=== PATIENT | male | born 1940 | race Caucasian/White ===

== ENCOUNTER 2018-02-22 06:32 | Emergency (ER) | payer MEDICARE ==
[~2018-02-22] VITALS: Ht 172.7 cm; Wt 95.5 kg
[2018-02-22] MEDS ORDERED: OXYcodone/APAP 5/325MG TABLET ONE (07:23)
[2018-02-22] MEDS ORDERED: OXYcodone/APAP 5/325MG TABLET PO ONE (07:30)
[2018-02-22 08:07] VITALS: BP 117/69
== END 2018-02-22 08:41 | disposition home or self-care (01) ==
LOC: ED 07:45
DX: S93.622A Sprain of tarsometatarsal ligament of left foot, initial encounter (principal); X58.XXXA Exposure to other specified factors, initial encounter; Y93.89 Activity, other specified; Y92.89 Other specified places as the place of occurrence of the external cause; Y99.8 Other external cause status
CPT/HCPCS: 99284

== ENCOUNTER 2018-04-03 17:28 | Emergency (ER) | payer MEDICARE ==
[~2018-04-03] VITALS: Ht 172.7 cm; Wt 93.5 kg
[2018-04-03 17:30] VITALS: BP 137/86
== END 2018-04-03 18:37 | disposition home or self-care (01) ==
LOC: ED 18:05
DX: S93.611A Sprain of tarsal ligament of right foot, initial encounter (principal); X50.1XXA Overexertion from prolonged static or awkward postures, initial encounter; Y93.89 Activity, other specified; Y99.8 Other external cause status; Y92.009 Unspecified place in unspecified non-institutional (private) residence as the place of occurrence of the external cause
CPT/HCPCS: 99284

== ENCOUNTER 2018-08-15 12:38 | Emergency (ER) | payer MEDICARE ==
[~2018-08-15] VITALS: Ht 175.3 cm; Wt 91.0 kg
[2018-08-15] MEDS ORDERED: SODIUM CHLORIDE FLUSH 10ML SYR IVF ONE (14:00)
[2018-08-15] MEDS ORDERED: SODIUM CHLORIDE 0.9% 1,000ML IVBOLUS ONE (14:00)
[2018-08-15] MEDS ORDERED: ONDANSETRON 2MG/ML, 2ML IVPush ONE (14:00)
[2018-08-15 14:05] LABS: BASOPHILS # (AUTO) 0.01 x10^3/uL (0-0.1); BASOPHILS % (AUTO) 0 % (0-1); EOSINOPHILS # (AUTO) 0.02 x10^3/uL (0-0.4); EOSINOPHILS % (AUTO) 0 % (1-7); LYMPHOCYTES % (AUTO) 14 % (22-44); MD NO; MEAN CORPUSCULAR HEMOGLOBIN 30.6 pg (27.5-34.5); MEAN CORPUSCULAR HGB CONC 33.7 g/dL (33.2-36.2); MEAN CORPUSCULAR VOLUME 90.6 fL (81-97); MEAN PLATELET VOLUME 9.5 fL (7.4-10.4); MONOCYTES % (AUTO) 10 % (2-9); NEUTROPHILS # (AUTO) 7.43 x10^3/uL (1.8-6.8); NEUTROPHILS % (AUTO) 75 % (42-75); PLATELET COUNT 254 x10^3/uL (130-400); RED BLOOD COUNT 6.27 x10^6/uL (4.38-5.82); RED CELL DISTRIBUTION WIDTH 14.2 % (9.4-14.8)
[2018-08-15] MEDS ORDERED: ONDANSETRON 2MG/ML, 2ML ONE (14:07)
[2018-08-15 14:30] VITALS: BP 145/100
[2018-08-15 14:53] LABS: CHLORIDE 105 mmol/L (98-107)
[2018-08-15 14:59] LABS: ALBUMIN 3.9 g/dL (3.4-5.0); ANION GAP 12 mmol/L (5-15); CALCIUM 10.2 mg/dL (8.5-10.1)
[2018-08-15 15:03] LABS: ALANINE AMINOTRANSFERASE 33 U/L (12-78); ALKALINE PHOSPHATASE 93 U/L (45-117); BILIRUBIN,TOTAL 1.2 mg/dL (0.2-1.0); CREATININE 1.23 mg/dL (0.7-1.3); TOTAL PROTEIN 8.8 g/dL (6.4-8.2)
== END 2018-08-15 16:41 | disposition home or self-care (01) ==
LOC: ED 16:40
DX: K52.9 Noninfective gastroenteritis and colitis, unspecified (principal); E86.0 Dehydration; D75.1 Secondary polycythemia
CPT/HCPCS: 36415; 80053; 83605; 85025; 96361; 96374; 99284; J2405; J7030

== ENCOUNTER 2018-10-14 02:17 | Emergency (ER) | payer MEDICARE ==
[~2018-10-14] VITALS: Ht 175.3 cm; Wt 79.0 kg
[2018-10-14 02:52] LABS: BASOPHILS # (AUTO) 0.02 x10^3/uL (0-0.1); BASOPHILS % (AUTO) 0 % (0-1); EOSINOPHILS % (AUTO) 1 % (1-7); LYMPHOCYTES # (AUTO) 1.07 x10^3/uL (1-3.4); LYMPHOCYTES % (AUTO) 13 % (22-44); MD NO; MEAN CORPUSCULAR HEMOGLOBIN 30.5 pg (27.5-34.5); MEAN CORPUSCULAR HGB CONC 33.5 g/dL (33.2-36.2); MEAN CORPUSCULAR VOLUME 91.1 fL (81-97); MEAN PLATELET VOLUME 9.1 fL (7.4-10.4); MONOCYTES # (AUTO) 0.89 x10^3/uL (0.2-0.8); MONOCYTES % (AUTO) 11 % (2-9); NEUTROPHILS # (AUTO) 6.06 x10^3/uL (1.8-6.8); NEUTROPHILS % (AUTO) 75 % (42-75); PLATELET COUNT 272 x10^3/uL (130-400); RED BLOOD COUNT 5.22 x10^6/uL (4.38-5.82); RED CELL DISTRIBUTION WIDTH 14.1 % (9.4-14.8)
[2018-10-14 03:03] LABS: ALANINE AMINOTRANSFERASE 21 U/L (12-78); ALBUMIN 3.7 g/dL (3.4-5.0); ANION GAP 9 mmol/L (5-15); CALCIUM 9.5 mg/dL (8.5-10.1); CHLORIDE 107 mmol/L (98-107); CREATININE 1.27 mg/dL (0.7-1.3)
[2018-10-14 03:05] LABS: MICROSCOPIC AUTO
[2018-10-14 03:05] LABS: ALKALINE PHOSPHATASE 72 U/L (45-117); BILIRUBIN,TOTAL 0.6 mg/dL (0.2-1.0); TOTAL PROTEIN 7.9 g/dL (6.4-8.2)
[2018-10-14 03:07] LABS: CULTURE INDICATED? NO
--- NOTE | 2018-10-14 03:17 | NUR ---
PT RESTING IN BED IN HOSPITAL GOWN. PT ABLE TO PROVIDE A URINE AND STOOL SAMPLE. BOTH SENT TO LAB. LABS HAVE BEEN DRAWN. PT ON VITALS MONITORS.
[2018-10-14 04:06] LABS: CLOSTRIDIUM DIFFICILE ANTIGEN NEGATIVE; CLOSTRIDIUM DIFFICILE TOXIN NEGATIVE (Negative)
[2018-10-14 04:35] VITALS: BP 112/60
== END 2018-10-14 04:42 | disposition home or self-care (01) ==
LOC: ED 03:19
DX: R19.7 Diarrhea, unspecified (principal); I10 Essential (primary) hypertension; E11.9 Type 2 diabetes mellitus without complications; Z86.73 Personal history of transient ischemic attack (TIA), and cerebral infarction without residual deficits; Z87.891 Personal history of nicotine dependence; Z90.89 Acquired absence of other organs
CPT/HCPCS: 36415; 80053; 81001; 85025; 87324; 89055; 99283

== ENCOUNTER 2018-10-16 01:01 | Observation (INO) | payer MEDICARE ==
[~2018-10-16] VITALS: Ht 175.3 cm; Wt 89.5 kg
--- NOTE | 2018-10-16 01:19 | NUR ---
BIB [facility] FROM HOME FOR C/O CP X ABOUT 6 HOURS. PT. REPORTS "IT STARTED A DULL PAIN IN MY RIGHT ARM ABOUT 5PM THEN MOVED INTO THE CENTER OF MY CHEST". PT. REPORTS PAIN 6/10 AT IT'S WORST AND IS CURRENTLY 3/10. PT. DESCRIBES PAIN DULL AND C/O LIGHT-HEADEDNESS ALSO. IV ESTABLISHED EN ROUTE AND ABOUT 100ML OF NS AFTER B/P DROPPED AFTER 2 NITRO EN ROUTE. PT. TOOK 4 [facility]Y [facility]SA PRIOR TO [facility] ARRIVAL. EKG COMPLETED AND PRESENTED TO ERMD. ERICA NP IN TO EVAL PT. AND DISCUSS POC. PT. PLACED ON CONTINUOUS PULSE OX AND B/P MONIOTRS. PT. WAS ABLE TO TRANSFER SELF FROM [facility] TO [facility] WITHOUT DIFFICULTY. PT. SPEAKING IN FULL SENTENCES/TELLING JOKES TO THIS RN. PT. DENIES NEEDS. CALL LIGHT IN REACH. ALL SAFETY MEASUERS OBSERVED.
[2018-10-16 01:29] LABS: BASOPHILS # (AUTO) 0.02 x10^3/uL (0-0.1); BASOPHILS % (AUTO) 0 % (0-1); EOSINOPHILS # (AUTO) 0.13 x10^3/uL (0-0.4); EOSINOPHILS % (AUTO) 2 % (1-7); LYMPHOCYTES # (AUTO) 1.24 x10^3/uL (1-3.4); LYMPHOCYTES % (AUTO) 15 % (22-44); MD NO; MEAN CORPUSCULAR HEMOGLOBIN 30.9 pg (27.5-34.5); MEAN CORPUSCULAR HGB CONC 33.8 g/dL (33.2-36.2); MEAN CORPUSCULAR VOLUME 91.3 fL (81-97); MEAN PLATELET VOLUME 8.9 fL (7.4-10.4); MONOCYTES # (AUTO) 0.94 x10^3/uL (0.2-0.8); MONOCYTES % (AUTO) 12 % (2-9); NEUTROPHILS # (AUTO) 5.74 x10^3/uL (1.8-6.8); NEUTROPHILS % (AUTO) 71 % (42-75); PLATELET COUNT 273 x10^3/uL (130-400); RED BLOOD COUNT 5.01 x10^6/uL (4.38-5.82); RED CELL DISTRIBUTION WIDTH 14.2 % (9.4-14.8)
[2018-10-16 01:42] LABS: ALANINE AMINOTRANSFERASE 22 U/L (12-78); ALBUMIN 3.1 g/dL (3.4-5.0); ANION GAP 9 mmol/L (5-15); CALCIUM 8.6 mg/dL (8.5-10.1); CHLORIDE 107 mmol/L (98-107)
[2018-10-16 01:47] LABS: ALKALINE PHOSPHATASE 69 U/L (45-117); BILIRUBIN,TOTAL 0.2 mg/dL (0.2-1.0); CREATININE 1.12 mg/dL (0.7-1.3); TOTAL PROTEIN 7.2 g/dL (6.4-8.2); TROPONIN I < 0.015 ng/mL (0.000-0.045)
--- NOTE | 2018-10-16 01:58 | NUR ---
PT. RESTING ON GURNEY WITH NADN, WATCHING TV. PT. DENIES NEEDS. CALL LIGHT IN REACH. ALL SAFETY MEASUES OBSERVED. PT. CHART UP FOR RECHECK BY TRISTAN.
--- NOTE | 2018-10-16 02:58 | NUR ---
[facility] AT BS TO EVAL PT. FOR ADMISSION. THEY ARE AWARE OF INABILITY TO COMPLETE MED REC PT. DOESN'T KNOW HIS MEDS OFF HAND AND DOESN'T HAVE A LIST OF THEM. HE USES THE [facility] ON [address] FOR PHARMACY; UNABLE TO CALL FOR MEDS THEY ARE CLOSED AT THIS TIME. PT. WITH NO DISTRESS NOTED. VS UPDATED. DENIES NEEDS AT THIS TIME. AWAITING BED UPSTAIRS.
--- NOTE | 2018-10-16 03:16 | NUR ---
REPORT TO GIOVANNY CRENSHAW. FLOOR READY FOR PT. TRANSPORT.
--- NOTE | 2018-10-16 03:18 | NUR ---
REPORTED TO GIOVANNY CRENSHAW THAT DAY SHIFT WILL NEED TO F/U WITH MED REC.
[2018-10-16] MEDS ORDERED: LABETALOL 5MG/ML, 20ML IVPush PRN (03:30)
[2018-10-16] MEDS ORDERED: ENOXAPARIN 40 MG/0.4 ML SQ SCH (03:30)
[2018-10-16] MEDS ORDERED: NITROGLYCERIN 0.4 MG/SPRAY SL PRN (03:30)
[2018-10-16] MEDS ORDERED: ONDANSETRON ODT 4 MG PO PRN (03:30)
[2018-10-16] MEDS ORDERED: NITROGLYCERIN 0.4 MG BOTTLE (25 TABS) SL PRN ×2 (03:30)
[2018-10-16] MEDS ORDERED: IBUPROFEN 600 MG TABLET PO PRN (03:30)
[2018-10-16] MEDS ORDERED: ONDANSETRON 2MG/ML, 2ML IVPush PRN (03:30)
[2018-10-16] MEDS ORDERED: ACETAMINOPHEN 325 MG TABLET PO PRN (03:30)
[2018-10-16] MEDS ORDERED: GLUCAGON 1 MG IM PRN (03:30)
[2018-10-16] MEDS ORDERED: morphine SULFATE 10 MG/ML, 1ML IVPush PRN (03:30)
[2018-10-16] MEDS ORDERED: DEXTROSE 4 GM TAB.CHEW PO PRN (03:30)
[2018-10-16] MEDS ORDERED: ENALAPRILAT 1.25 MG/ML, 2ML IVPush PRN (03:30)
[2018-10-16] MEDS ORDERED: DEXTROSE 50%, 50ML SYRINGE IVPush PRN (03:30)
[2018-10-16 03:47] LABS: HEMOGLOBIN A1C 6.5 % (4.2-6.3)
[2018-10-16] MEDS: INSULIN LISPRO 100 UNITS/ML, PEN SQ-INSULIN SCH ×4 (04:05→16:00)
[2018-10-16 04:07] VITALS: BP 112/72
[2018-10-16] MEDS: POTASSIUM CHLORIDE 20 MEQ in LACTATED RINGERS 1,000 ML IV SCH ×2 (04:22→16:36)
[2018-10-16] MEDS ORDERED: ASPIRIN 325 MG TABLET EC PO SCH (06:00)
[2018-10-16] MEDS ORDERED: POTASSIUM CHLORIDE 20 MEQ TAB.ER.PRT PO ONE (07:30)
[2018-10-16 07:59] LABS: TROPONIN I < 0.015 ng/mL (0.000-0.045)
[2018-10-16] MEDS ORDERED: REGADENOSON 0.4 MG/5 ML SYRINGE ONE (08:39)
[2018-10-16] MEDS ORDERED: SODIUM CHLORIDE FLUSH 10ML SYR IVF SCH (09:00)
[2018-10-16] MEDS ORDERED: SENNA/DOCUSATE TABLET PO SCH (09:00)
[2018-10-16 09:12] VITALS: BP 114/73
[2018-10-16 14:49] VITALS: BP 118/76
== END 2018-10-16 17:45 | disposition home or self-care (01) ==
LOC: ED 02:22 → EDIP 02:25 → INTOOBSV 02:25 → 4EST 03:36
PROVIDERS: ADMIT Family Medicine; ATTEND Family Medicine
DX: R07.89 Other chest pain (principal); M79.601 Pain in right arm; I10 Essential (primary) hypertension; E11.40 Type 2 diabetes mellitus with diabetic neuropathy, unspecified; E78.5 Hyperlipidemia, unspecified; E87.6 Hypokalemia; Z86.73 Personal history of transient ischemic attack (TIA), and cerebral infarction without residual deficits; Z87.891 Personal history of nicotine dependence
CPT/HCPCS: 36415; 71045; 73060; 78452; 80053; 82962; 83036; 84484; 85025; 93005; 93017; 96365; 96366; 96372; 99284; A9502; C9898; G0378; J1650; J2785; J3480; J7120

== ENCOUNTER 2019-01-15 23:46 | Emergency (ER) | payer MEDICARE ==
[~2019-01-15] VITALS: Ht 172.7 cm; Wt 90.0 kg
[2019-01-15 23:54] VITALS: BP 127/81
--- NOTE | 2019-01-16 00:05 | NUR ---
PA AT BEDSIDE. UPDATED ON PLAN OF CARE. VSS.
--- NOTE | 2019-01-16 00:11 | NUR ---
Report to Francesca BALTAZAR and Mayuri BALTAZAR
[2019-01-16] MEDS ORDERED: KETOROLAC 30 MG/1 ML ONE (01:17)
--- NOTE | 2019-01-16 01:20 | NUR ---
PT MEDICATED WITH TORADOL 30MG IM FOR PAIN PER EMAR
[2019-01-16] MEDS ORDERED: KETOROLAC 30 MG/1 ML IM ONE (01:30)
--- NOTE | 2019-01-16 01:49 | NUR ---
Patient/Caregiver given discharge instructions and they have confirmed that they understand the instructions. Patient ambulatory with steady gait.
== END 2019-01-16 01:51 | disposition home or self-care (01) ==
LOC: ED 01-16 01:13
DX: S63.502A Unspecified sprain of left wrist, initial encounter (principal); E11.9 Type 2 diabetes mellitus without complications; I10 Essential (primary) hypertension; M10.9 Gout, unspecified; Z86.73 Personal history of transient ischemic attack (TIA), and cerebral infarction without residual deficits; Z90.89 Acquired absence of other organs; X58.XXXA Exposure to other specified factors, initial encounter; Y93.89 Activity, other specified; Y92.89 Other specified places as the place of occurrence of the external cause; Y99.8 Other external cause status
CPT/HCPCS: 73110; 73130; 96372; 99283; J1885

== ENCOUNTER 2019-02-01 20:41 | Emergency (ER) | payer MEDICARE ==
[~2019-02-01] VITALS: Ht 172.7 cm; Wt 95.0 kg
[2019-02-01 21:00] VITALS: BP 102/55
--- NOTE | 2019-02-01 21:35 | NUR ---
SPLINT APPLIED TO LEFT WRIST. CMS INTACT POST APPLICATION
== END 2019-02-01 21:59 | disposition home or self-care (01) ==
LOC: ED 21:45
DX: M25.532 Pain in left wrist (principal); I10 Essential (primary) hypertension; E11.9 Type 2 diabetes mellitus without complications; Z86.73 Personal history of transient ischemic attack (TIA), and cerebral infarction without residual deficits
CPT/HCPCS: 29125; 99283

== ENCOUNTER 2020-03-31 01:29 | Observation (INO) | payer MEDICARE ==
[~2020-03-31] VITALS: Ht 172.7 cm; Wt 94.8 kg
[~2020-03-31 01:29] MED LIST: ASPI-515 PO; ESCI5TAB PO; GABA800T5 PO; LISI1TAB20 PO; METF500T17 PO; SIMV20TA19 PO
--- NOTE | 2020-03-31 01:47 | NUR ---
Patient BIB [facility] c/o RLQ abd pain radiating to back x3-4 days. Pain increases with exertion. Denies N/V, urinary symptoms, or blood in stool. Patient has no appendix. Patient is in NAD. REspirations even and unlabored.
[2020-03-31] MEDS ORDERED: ONDANSETRON 2MG/ML, 2ML ONE (01:51)
[2020-03-31] MEDS ORDERED: MORPHINE SULFATE 4 MG/ML, 1ML ONE (01:52)
[2020-03-31] MEDS ORDERED: MORPHINE SULFATE 4 MG/ML, 1ML IVPush PRN (02:00)
[2020-03-31] MEDS ORDERED: ONDANSETRON 2MG/ML, 2ML IVPush ONE (02:00)
[2020-03-31 02:23] LABS: BASOPHILS # (AUTO) 0.01 x10^3/uL (0-0.1); BASOPHILS % (AUTO) 0 % (0-1); EOSINOPHILS % (AUTO) 1 % (1-7); LYMPHOCYTES # (AUTO) 0.99 x10^3/uL (1-3.4); LYMPHOCYTES % (AUTO) 10 % (22-44); MD NO; MEAN CORPUSCULAR HEMOGLOBIN 29.7 pg (27.5-34.5); MEAN CORPUSCULAR HGB CONC 32.4 g/dL (33.2-36.2); MEAN CORPUSCULAR VOLUME 91.7 fL (81-97); MEAN PLATELET VOLUME 8.8 fL (7.4-10.4); MONOCYTES % (AUTO) 9 % (2-9); NEUTROPHILS # (AUTO) 7.89 x10^3/uL (1.8-6.8); NEUTROPHILS % (AUTO) 80 % (42-75); PLATELET COUNT 255 x10^3/uL (130-400); RED BLOOD COUNT 6.05 x10^6/uL (4.38-5.82); RED CELL DISTRIBUTION WIDTH 14.1 % (9.4-14.8)
[2020-03-31 02:35] LABS: ALANINE AMINOTRANSFERASE 25 U/L (12-78); ALBUMIN 3.4 g/dL (3.4-5.0); ANION GAP 6 mmol/L (5-15); CALCIUM 9.5 mg/dL (8.5-10.1); CHLORIDE 102 mmol/L (98-107); CREATININE 1.57 mg/dL (0.7-1.3)
[2020-03-31 02:37] LABS: ALKALINE PHOSPHATASE 91 U/L (45-117); TOTAL PROTEIN 8.9 g/dL (6.4-8.2)
[2020-03-31] MEDS ORDERED: SODIUM CHLORIDE 0.9% 1,000ML IVBOLUS ONE (04:00)
--- NOTE | 2020-03-31 04:40 | NUR ---
PATIENT REPORTS PAIN IMPROVED AFTER PAIN MEDICATION, VSS, NAD. WILL CONTINUE TO MONITOR
[2020-03-31] MEDS ORDERED: ONDANSETRON 2MG/ML, 2ML IVPush PRN (05:00)
[2020-03-31] MEDS ORDERED: HYDROcodone/APAP 5/325 TABLET PO PRN (05:00)
[2020-03-31] MEDS ORDERED: ACETAMINOPHEN 325 MG TABLET PO PRN (05:00)
[2020-03-31] MEDS ORDERED: hydrALAzine 20 MG/ML, 1ML IVPush PRN (05:00)
[2020-03-31 05:31] VITALS: BP 118/76
[2020-03-31] MEDS: SODIUM CHLORIDE 0.9% 1,000 ML IV SCH ×2 (06:05→11:20)
[2020-03-31] MEDS: GABAPENTIN 400 MG CAPSULE PO SCH ×4 (06:05→13:42)
[2020-03-31] MEDS: INSULIN LISPRO 100 UNITS/ML, PEN SQ-INSULIN SCH ×2 (07:00→11:00)
[2020-03-31 08:53] VITALS: BP 95/61
[2020-03-31] MEDS ORDERED: ESCITALOPRAM 10MG TABLET PO SCH (09:00)
[2020-03-31] MEDS ORDERED: ASPIRIN 81 MG TABLET EC PO SCH (09:00)
[2020-03-31 10:36] LABS: MICROSCOPIC NOT IND
[2020-03-31 12:16] VITALS: BP 95/61
[2020-03-31] MEDS ORDERED: SIMVASTATIN 20 MG TABLET PO SCH (21:00)
== END 2020-03-31 16:15 | disposition home or self-care (01) ==
LOC: ED 03:52 → INTOOBSV 04:14 → EDIP 04:14 → 3N 05:26
PROVIDERS: ADMIT Internal Medicine; ATTEND Hospitalist
DX: K52.9 Noninfective gastroenteritis and colitis, unspecified (principal); K85.90 Acute pancreatitis without necrosis or infection, unspecified; R10.31 Right lower quadrant pain; F32.9 Major depressive disorder, single episode, unspecified; I10 Essential (primary) hypertension; N17.9 Acute kidney failure, unspecified; E11.21 Type 2 diabetes mellitus with diabetic nephropathy; E78.5 Hyperlipidemia, unspecified; E86.0 Dehydration; N28.9 Disorder of kidney and ureter, unspecified; N40.0 Benign prostatic hyperplasia without lower urinary tract symptoms; Z86.73 Personal history of transient ischemic attack (TIA), and cerebral infarction without residual deficits; Z79.82 Long term (current) use of aspirin; Z79.899 Other long term (current) drug therapy; Z86.12 Personal history of poliomyelitis; Z87.891 Personal history of nicotine dependence; Z90.49 Acquired absence of other specified parts of digestive tract; Z91.041 Radiographic dye allergy status; Z66 Do not resuscitate
CPT/HCPCS: 36415; 71045; 74176; 80053; 81003; 82962; 83036; 83605; 83690; 85025; 96361; 96374; 96375; 99285; G0378; J2270; J2405; J7030

== ENCOUNTER 2020-05-04 11:17 | Emergency (ER) | payer MEDICARE ==
[~2020-05-04] VITALS: Ht 172.7 cm; Wt 90.9 kg
--- NOTE | 2020-05-04 11:35 | NUR ---
BIB [facility] FOR WEAKNESS, DIZZINESS, NAUSEA, DIARRHEA AND PAIN X4 DAYS, PT STATES HE STOPPED TAKING HIS GABAPENTIN SEVERAL DAYS AGO AFTER RUNNING OUT AND WOULD LIKE A DOSE. HX HTN, HLD, DM2, STROKE, POLIO. BS 134. PT RECIEVED 900CC IVF FROM EMS. BP ELEVATED, PT STATES HE HAS NOT RUN OUT OF BP MEDICATIONS AND HAS BEEN TAKING THEM SCHEDULED. PT PLACED ON MONITOR. CALL LIGHT WITHIN REACH.
[2020-05-04] MEDS ORDERED: SODIUM CHLORIDE FLUSH 10ML SYR IVF ONE (12:30)
[2020-05-04 12:37] VITALS: BP 137/89
--- NOTE | 2020-05-04 12:37 | NUR ---
TASK RN: URINE SAMPLE COLLECTED. PT RESTING ON [place]. CALL LIGHT PLACED WITHIN REACH. INSTRUMENT LENS GENERATOR AT BEDSIDE.
[2020-05-04 12:46] LABS: MICROSCOPIC NOT IND
[2020-05-04 12:56] LABS: BASOPHILS # (AUTO) 0.03 x10^3/uL (0-0.1); BASOPHILS % (AUTO) 0 % (0-1); EOSINOPHILS # (AUTO) 0.01 x10^3/uL (0-0.4); EOSINOPHILS % (AUTO) 0 % (1-7); LYMPHOCYTES % (AUTO) 11 % (22-44); MD NO; MEAN CORPUSCULAR HEMOGLOBIN 29.1 pg (27.5-34.5); MEAN CORPUSCULAR VOLUME 90.7 fL (81-97); MEAN PLATELET VOLUME 8.8 fL (7.4-10.4); MONOCYTES # (AUTO) 0.52 x10^3/uL (0.2-0.8); MONOCYTES % (AUTO) 6 % (2-9); NEUTROPHILS # (AUTO) 7.74 x10^3/uL (1.8-6.8); NEUTROPHILS % (AUTO) 83 % (42-75); PLATELET COUNT 219 x10^3/uL (130-400); RED BLOOD COUNT 6.12 x10^6/uL (4.38-5.82); RED CELL DISTRIBUTION WIDTH 14.9 % (9.4-14.8)
[2020-05-04 13:03] LABS: ALANINE AMINOTRANSFERASE 32 U/L (12-78); ALBUMIN 3.5 g/dL (3.4-5.0); ANION GAP 7 mmol/L (5-15); CALCIUM 9.1 mg/dL (8.5-10.1); CHLORIDE 107 mmol/L (98-107); CREATININE 1.08 mg/dL (0.7-1.3)
[2020-05-04 13:04] LABS: ALKALINE PHOSPHATASE 100 U/L (45-117); BILIRUBIN,TOTAL 0.8 mg/dL (0.2-1.0); TOTAL PROTEIN 8.2 g/dL (6.4-8.2)
[2020-05-04] MEDS ORDERED: GABAPENTIN 400 MG CAPSULE ONE (13:44)
--- NOTE | 2020-05-04 13:51 | NUR ---
PT REQUESTING DOSE OF GABAPENTIN, REMINDED AND DOSE ORDERED, PT MEDICATED PER MAR.
[2020-05-04] MEDS ORDERED: GABAPENTIN 300 MG CAPSULE PO ONE (14:00)
[2020-05-04] MEDS ORDERED: GABAPENTIN 400 MG CAPSULE PO ONE (14:00)
== END 2020-05-04 15:14 | disposition home or self-care (01) ==
LOC: ED 12:33
DX: M79.672 Pain in left foot (principal); M79.671 Pain in right foot; R42 Dizziness and giddiness; R51 Headache; R94.31 Abnormal electrocardiogram [ECG] [EKG]; I10 Essential (primary) hypertension; E11.9 Type 2 diabetes mellitus without complications; Z86.73 Personal history of transient ischemic attack (TIA), and cerebral infarction without residual deficits
CPT/HCPCS: 36415; 80053; 81003; 85025; 93005; 99284

== ENCOUNTER 2020-06-12 22:02 | Emergency (ER) | payer MEDICARE ==
[~2020-06-12] VITALS: Ht 172.7 cm; Wt 90.0 kg
[2020-06-12 22:12] VITALS: BP 152/82
--- NOTE | 2020-06-12 22:16 | NUR ---
PT BIB EMS FOR RIGHT KNEE PAIN AND SWELLING. PT DENIES TRAUMA. SAID " I DROVE MY CAB FOR 11 HOURS THE OTHER DAY. AND MY KNEE SWELLED UP LIKE THIS". PT GIVEN 100MCG OF FENTANYL AND 2MG MORPHINE SINGER SONGWRITER. PT IS RESTING IN [facility]. STATES HE PAIN IS UNDER CONTROL AT THE MOMENT. MADAY HERNANDEZ, IS BEDSIDE FOR ASSESSMENT
[2020-06-12] MEDS ORDERED: BUPIVACAINE 0.25% ONE (22:44)
[2020-06-12] MEDS ORDERED: LIDOCAINE-MPF 1%, 5ML ONE (22:44)
[2020-06-12 23:06] LABS: BASOPHILS # (AUTO) 0.01 x10^3/uL (0-0.1); BASOPHILS % (AUTO) 0 % (0-1); EOSINOPHILS # (AUTO) 0.01 x10^3/uL (0-0.4); EOSINOPHILS % (AUTO) 0 % (1-7); LYMPHOCYTES # (AUTO) 0.46 x10^3/uL (1-3.4); LYMPHOCYTES % (AUTO) 4 % (22-44); MD NO; MEAN CORPUSCULAR HEMOGLOBIN 29.3 pg (27.5-34.5); MEAN CORPUSCULAR HGB CONC 32.2 g/dL (33.2-36.2); MEAN CORPUSCULAR VOLUME 90.8 fL (81-97); MEAN PLATELET VOLUME 8.7 fL (7.4-10.4); MONOCYTES # (AUTO) 0.72 x10^3/uL (0.2-0.8); MONOCYTES % (AUTO) 6 % (2-9); NEUTROPHILS # (AUTO) 11.83 x10^3/uL (1.8-6.8); NEUTROPHILS % (AUTO) 91 % (42-75); PLATELET COUNT 255 x10^3/uL (130-400); RED BLOOD COUNT 5.79 x10^6/uL (4.38-5.82); RED CELL DISTRIBUTION WIDTH 14.9 % (9.4-14.8)
[2020-06-12 23:15] LABS: ALBUMIN 3.4 g/dL (3.4-5.0); ANION GAP 8 mmol/L (5-15); CALCIUM 9.7 mg/dL (8.5-10.1); CHLORIDE 103 mmol/L (98-107); CREATININE 1.19 mg/dL (0.7-1.3)
[2020-06-13] MEDS ORDERED: HYDROcodone/APAP 5/325 TABLET ONE (00:21)
[2020-06-13] MEDS ORDERED: KETOROLAC 30 MG/1 ML ONE (00:21)
[2020-06-13] MEDS ORDERED: HYDROcodone/APAP 5/325 TABLET PO ONE (00:30)
[2020-06-13] MEDS ORDERED: KETOROLAC 30 MG/1 ML IM ONE (00:30)
== END 2020-06-13 01:16 | disposition home or self-care (01) ==
LOC: ED 22:45
DX: M25.461 Effusion, right knee (principal); E11.9 Type 2 diabetes mellitus without complications; E78.5 Hyperlipidemia, unspecified; I10 Essential (primary) hypertension; Z86.73 Personal history of transient ischemic attack (TIA), and cerebral infarction without residual deficits; Z90.89 Acquired absence of other organs; Z87.891 Personal history of nicotine dependence
CPT/HCPCS: 20610; 36415; 73564; 80048; 82040; 84550; 85025; 96372; 99284; J1885

== ENCOUNTER 2020-11-25 23:11 | Inpatient (IN) | payer MEDICARE ==
[~2020-11-25] VITALS: Ht 172.7 cm; Wt 85.5 kg
[~2020-11-25 23:11] MED LIST changes: -ASPI-515 PO; +ASPI-963 PO; -ESCI5TAB PO; +ESCI5TAB8 PO
--- NOTE | 2020-11-25 23:48 | NUR ---
EDIN PEREZ, PER EMS PT SIGNIFICANT OTHER CALLED [facility] BECAUSE PT HAS BEEN HAVING WEAKNESS AND DIFFICULTY AMBULATING. PT STATES HE HASNT BEEN FEELING WELL BECAUSE HE HAS HAD A LOSS OF APPITIE FOR ABOUT 2 DAYS. PT CONFUSED AND HYPOXIC. EKG COMPLETED UPON ARRIVAL TO ED. DENIES ANY PAIN EXCEPT AN OLD INJURY IN THE LEFT WRIST. PT ATTACHED TO ALL MONITORS. PIV PLACED AND O2 APPLIED VIA NC TO MAINTAIN O2 >90%
[2020-11-26] VITALS (7 sets, daily range): BP systolic 118–129; BP diastolic 71–80
[2020-11-26] MEDS ORDERED: SODIUM CHLORIDE 0.9% 1,000ML IVBOLUS ONE
[2020-11-26] MEDS ORDERED: SODIUM CHLORIDE FLUSH 10ML SYR IVF ONE
[2020-11-26 00:21] LABS: ALANINE AMINOTRANSFERASE 19 U/L (12-78); ALBUMIN 3.3 g/dL (3.4-5.0); ANION GAP 11 mmol/L (5-15); CALCIUM 9.6 mg/dL (8.5-10.1); CHLORIDE 102 mmol/L (98-107); CREATININE 1.23 mg/dL (0.7-1.3)
[2020-11-26 00:23] LABS: ALKALINE PHOSPHATASE 99 U/L (45-117); BILIRUBIN,TOTAL 1.1 mg/dL (0.2-1.0); TOTAL PROTEIN 8.3 g/dL (6.4-8.2)
[2020-11-26 00:32] LABS: BASOPHILS % (AUTO) 0 % (0-1); EOSINOPHILS % (AUTO) 0 % (1-7); LYMPHOCYTES % (AUTO) 5 % (22-44); MEAN CORPUSCULAR HEMOGLOBIN 30.3 pg (27.5-34.5); MEAN CORPUSCULAR HGB CONC 33.5 g/dL (33.2-36.2); MEAN PLATELET VOLUME 9.7 fL (7.4-10.4); MONOCYTES % (AUTO) 8 % (2-9); NEUTROPHILS % (AUTO) 86 % (42-75); PLATELET COUNT 226 x10^3/uL (130-400); RED BLOOD COUNT 5.63 x10^6/uL (4.38-5.82); RED CELL DISTRIBUTION WIDTH 16.1 % (9.4-14.8)
[2020-11-26 00:36] LABS: MD NO
[2020-11-26 00:38] LABS: MICROSCOPIC INDICATED
--- NOTE | 2020-11-26 00:48 | NUR ---
PT RESTING ON GURNEY. NO DISTRESS. AWAITING LAB RESULTS
[2020-11-26] MEDS ORDERED: CEFTRIAXONE PMX 1GM/50ML 50 ML IVPB ONE (01:00)
--- NOTE | 2020-11-26 01:05 | NUR ---
REPORT RECIEVED FROM GIOVANNY ACKERMAN
--- NOTE | 2020-11-26 01:15 | NUR ---
2ND BLOOD CULTURE DRAWN AT THIS TIME
[2020-11-26] MEDS ORDERED: CEFTRIAXONE PMX 1GM/50ML 50 ML ONE (01:17)
--- NOTE | 2020-11-26 01:24 | NUR ---
report to GIOVANNY finn
--- NOTE | 2020-11-26 01:33 | NUR ---
ABX HUNG AFTER 2ND BLOOD CULTURE DRAW
[2020-11-26] MEDS ORDERED: ONDANSETRON 2MG/ML, 2ML IVPush PRN (03:00)
[2020-11-26] MEDS ORDERED: LABETALOL 5MG/ML, 20ML IVPush PRN (03:00)
[2020-11-26] MEDS: ENOXAPARIN 40 MG/0.4 ML SQ SCH (05:45)
[2020-11-26] MEDS: DOXYCYCLINE 100 MG in DEXTROSE 5% 250 ML IV SCH ×2 (10:52→22:24)
[2020-11-26] MEDS: ACETAMINOPHEN 325 MG TABLET PO PRN ×2 (14:40→20:06)
[2020-11-26] MEDS: GABAPENTIN 300 MG CAPSULE PO SCH ×2 (17:47→20:05)
[2020-11-26] MEDS: SIMVASTATIN 20 MG TABLET PO SCH (20:05)
[2020-11-27 00:43] VITALS: BP 119/74
[2020-11-27] MEDS: CEFTRIAXONE PMX 1GM/50ML 50 ML IV SCH (01:08)
[2020-11-27] MEDS: ACETAMINOPHEN 325 MG TABLET PO PRN (02:49)
[2020-11-27] MEDS: GABAPENTIN 300 MG CAPSULE PO SCH ×4 (02:49→20:51)
[2020-11-27] MEDS: ENOXAPARIN 40 MG/0.4 ML SQ SCH ×2 (05:25→05:49)
[2020-11-27 05:50] LABS: BASOPHILS % (AUTO) 0 % (0-1); CHLORIDE 104 mmol/L (98-107); EOSINOPHILS % (AUTO) 1 % (1-7); LYMPHOCYTES % (AUTO) 9 % (22-44); MEAN CORPUSCULAR HEMOGLOBIN 30.5 pg (27.5-34.5); MEAN CORPUSCULAR HGB CONC 33.9 g/dL (33.2-36.2); MEAN PLATELET VOLUME 9.9 fL (7.4-10.4); MONOCYTES % (AUTO) 9 % (2-9); NEUTROPHILS % (AUTO) 81 % (42-75); PLATELET COUNT 179 x10^3/uL (130-400); RED BLOOD COUNT 5.02 x10^6/uL (4.38-5.82); RED CELL DISTRIBUTION WIDTH 16.2 % (9.4-14.8)
[2020-11-27 05:54] LABS: MD NO
[2020-11-27 06:02] LABS: ALANINE AMINOTRANSFERASE 14 U/L (12-78); ALBUMIN 2.7 g/dL (3.4-5.0); ALKALINE PHOSPHATASE 86 U/L (45-117); ANION GAP 8 mmol/L (5-15); BILIRUBIN,TOTAL 0.8 mg/dL (0.2-1.0); CALCIUM 9.4 mg/dL (8.5-10.1); CREATININE 0.88 mg/dL (0.7-1.3); TOTAL PROTEIN 7.2 g/dL (6.4-8.2)
[2020-11-27 07:09] VITALS: BP 99/65
[2020-11-27] MEDS: LISINOPRIL 20 MG TABLET PO SCH (07:56)
[2020-11-27] MEDS: ASPIRIN 81 MG TABLET CHEW PO SCH (08:38)
[2020-11-27] MEDS: ESCITALOPRAM 10MG TABLET PO SCH (08:38)
[2020-11-27] MEDS: COLCHICINE 0.6 MG CAPSULE PO ONE ×2 (10:30→10:40)
[2020-11-27] MEDS: DOXYCYCLINE 100 MG in DEXTROSE 5% 250 ML IV SCH ×2 (10:40→22:04)
[2020-11-27 12:38] VITALS: BP 109/72
[2020-11-27 19:13] VITALS: BP 128/82
[2020-11-27] MEDS: SIMVASTATIN 20 MG TABLET PO SCH (20:51)
[2020-11-28 00:21] VITALS: BP 135/80
[2020-11-28] MEDS: CEFTRIAXONE PMX 1GM/50ML 50 ML IV SCH (01:11)
[2020-11-28] MEDS: GABAPENTIN 300 MG CAPSULE PO SCH ×4 (03:15→21:06)
[2020-11-28] MEDS: ENOXAPARIN 40 MG/0.4 ML SQ SCH (05:22)
[2020-11-28 05:26] LABS: BASOPHILS % (AUTO) 0 % (0-1); EOSINOPHILS % (AUTO) 1 % (1-7); LYMPHOCYTES % (AUTO) 15 % (22-44); MEAN CORPUSCULAR HEMOGLOBIN 30.6 pg (27.5-34.5); MEAN CORPUSCULAR HGB CONC 33.7 g/dL (33.2-36.2); MEAN PLATELET VOLUME 9.4 fL (7.4-10.4); MONOCYTES % (AUTO) 9 % (2-9); NEUTROPHILS % (AUTO) 75 % (42-75); PLATELET COUNT 191 x10^3/uL (130-400); RED BLOOD COUNT 4.76 x10^6/uL (4.38-5.82); RED CELL DISTRIBUTION WIDTH 16.1 % (9.4-14.8)
[2020-11-28 05:29] LABS: MD NO
[2020-11-28 05:39] LABS: CHLORIDE 104 mmol/L (98-107)
[2020-11-28 05:43] LABS: ANION GAP 8 mmol/L (5-15); CALCIUM 9.4 mg/dL (8.5-10.1); CREATININE 0.78 mg/dL (0.7-1.3)
[2020-11-28 06:35] VITALS: BP 116/73
[2020-11-28] MEDS: COLCHICINE 0.6 MG CAPSULE PO SCH (09:07)
[2020-11-28] MEDS: ASPIRIN 81 MG TABLET CHEW PO SCH (09:07)
[2020-11-28] MEDS: LISINOPRIL 20 MG TABLET PO SCH (09:08)
[2020-11-28] MEDS: ESCITALOPRAM 10MG TABLET PO SCH (09:08)
[2020-11-28] MEDS: DOXYCYCLINE 100 MG in DEXTROSE 5% 250 ML IV SCH ×2 (10:29→21:05)
[2020-11-28 12:17] VITALS: BP 85/58
[2020-11-28] MEDS ORDERED: SODIUM CHLORIDE 0.9%, 500ML IVBOLUS ONE (13:00)
[2020-11-28] MEDS ORDERED: SODIUM CHLORIDE 0.9% 1,000ML IVBOLUS ONE (13:30)
[2020-11-28 14:46] VITALS: BP 107/67
[2020-11-28] MEDS: ACETAMINOPHEN 325 MG TABLET PO PRN (15:01)
[2020-11-28 19:18] VITALS: BP 94/64
[2020-11-28] MEDS: SIMVASTATIN 20 MG TABLET PO SCH (21:07)
[2020-11-29] MEDS: CEFTRIAXONE PMX 1GM/50ML 50 ML IV SCH (00:05)
[2020-11-29 00:48] VITALS: BP_SYST 84; BP_SYST 95; BP_DIAS 55; BP_DIAS 62
[2020-11-29] MEDS: GABAPENTIN 300 MG CAPSULE PO SCH ×4 (03:43→20:01)
[2020-11-29] MEDS: ENOXAPARIN 40 MG/0.4 ML SQ SCH (05:57)
[2020-11-29 06:43] VITALS: BP 104/61
[2020-11-29] MEDS: COLCHICINE 0.6 MG CAPSULE PO SCH (07:25)
[2020-11-29] MEDS: ASPIRIN 81 MG TABLET CHEW PO SCH (07:25)
[2020-11-29] MEDS: ESCITALOPRAM 10MG TABLET PO SCH (07:26)
[2020-11-29 08:30] LABS: BASOPHILS % (AUTO) 1 % (0-1); EOSINOPHILS % (AUTO) 3 % (1-7); LYMPHOCYTES % (AUTO) 15 % (22-44); MEAN CORPUSCULAR HEMOGLOBIN 30.4 pg (27.5-34.5); MEAN CORPUSCULAR HGB CONC 33.1 g/dL (33.2-36.2); MEAN PLATELET VOLUME 8.8 fL (7.4-10.4); MONOCYTES % (AUTO) 8 % (2-9); NEUTROPHILS % (AUTO) 73 % (42-75); PLATELET COUNT 219 x10^3/uL (130-400); RED BLOOD COUNT 4.81 x10^6/uL (4.38-5.82); RED CELL DISTRIBUTION WIDTH 15.9 % (9.4-14.8)
[2020-11-29 08:40] LABS: ANION GAP 6 mmol/L (5-15); CALCIUM 9.2 mg/dL (8.5-10.1); CHLORIDE 105 mmol/L (98-107); CREATININE 0.76 mg/dL (0.7-1.3); MD NO
[2020-11-29] MEDS ORDERED: LISINOPRIL 20 MG TABLET PO SCH (09:00)
[2020-11-29] MEDS: DOXYCYCLINE 100 MG in DEXTROSE 5% 250 ML IV SCH ×2 (10:10→22:35)
[2020-11-29 12:14] VITALS: BP 117/70
[2020-11-29] MEDS: ACETAMINOPHEN 325 MG TABLET PO PRN ×2 (14:50→20:01)
[2020-11-29 19:55] VITALS: BP 125/86
[2020-11-29] MEDS: SIMVASTATIN 20 MG TABLET PO SCH (20:01)
[2020-11-30 00:42] VITALS: BP 111/63
[2020-11-30] MEDS: CEFTRIAXONE PMX 1GM/50ML 50 ML IV SCH (00:59)
[2020-11-30] MEDS: GABAPENTIN 300 MG CAPSULE PO SCH ×2 (03:58→08:57)
[2020-11-30 05:04] LABS: BASOPHILS % (AUTO) 1 % (0-1); EOSINOPHILS % (AUTO) 3 % (1-7); LYMPHOCYTES % (AUTO) 19 % (22-44); MEAN CORPUSCULAR HEMOGLOBIN 30.8 pg (27.5-34.5); MEAN CORPUSCULAR HGB CONC 33.7 g/dL (33.2-36.2); MEAN PLATELET VOLUME 9.1 fL (7.4-10.4); MONOCYTES % (AUTO) 10 % (2-9); NEUTROPHILS % (AUTO) 68 % (42-75); PLATELET COUNT 218 x10^3/uL (130-400); RED BLOOD COUNT 4.78 x10^6/uL (4.38-5.82); RED CELL DISTRIBUTION WIDTH 15.9 % (9.4-14.8)
[2020-11-30 05:13] LABS: ALBUMIN 2.6 g/dL (3.4-5.0); ANION GAP 5 mmol/L (5-15); CALCIUM 9.6 mg/dL (8.5-10.1); CHLORIDE 108 mmol/L (98-107)
[2020-11-30 05:16] LABS: MD NO
[2020-11-30 05:17] LABS: ALANINE AMINOTRANSFERASE 19 U/L (12-78); ALKALINE PHOSPHATASE 75 U/L (45-117); BILIRUBIN,TOTAL 0.5 mg/dL (0.2-1.0); CREATININE 0.74 mg/dL (0.7-1.3); TOTAL PROTEIN 6.7 g/dL (6.4-8.2)
[2020-11-30] MEDS: ENOXAPARIN 40 MG/0.4 ML SQ SCH (05:20)
[2020-11-30 07:18] VITALS: BP 135/88
[2020-11-30] MEDS: ASPIRIN 81 MG TABLET CHEW PO SCH (08:57)
[2020-11-30] MEDS: COLCHICINE 0.6 MG CAPSULE PO SCH (08:57)
[2020-11-30] MEDS: ESCITALOPRAM 10MG TABLET PO SCH (08:58)
[2020-11-30] MEDS: DOXYCYCLINE 100 MG in DEXTROSE 5% 250 ML IV SCH (09:09)
[2020-11-30] MEDS ORDERED: DOXY100T PO (10:00)
[2020-11-30] MEDS ORDERED: TRAM50TA2 PO (10:00)
[2020-11-30] MEDS ORDERED: CEFD300C37 PO (10:00)
[2020-11-30 13:04] VITALS: BP 137/69
== END 2020-11-30 13:30 | disposition home health service (06) | DRG 602 ==
LOC: ED 11-26 00:29 → 3N 11-26 02:40 → 4WST 11-26 03:59
PROVIDERS: ADMIT Family Medicine; ATTEND Hospitalist
DX: L03.116 Cellulitis of left lower limb (principal); J96.01 Acute respiratory failure with hypoxia; J18.9 Pneumonia, unspecified organism; R65.10 Systemic inflammatory response syndrome (SIRS) of non-infectious origin without acute organ dysfunction; E87.1 Hypo-osmolality and hyponatremia; N39.0 Urinary tract infection, site not specified; M10.9 Gout, unspecified; I11.9 Hypertensive heart disease without heart failure; E78.5 Hyperlipidemia, unspecified; E11.40 Type 2 diabetes mellitus with diabetic neuropathy, unspecified; E87.70 Fluid overload, unspecified; Z88.3 Allergy status to other anti-infective agents; Z80.3 Family history of malignant neoplasm of breast; Z86.73 Personal history of transient ischemic attack (TIA), and cerebral infarction without residual deficits; Z79.82 Long term (current) use of aspirin; Z79.899 Other long term (current) drug therapy
CPT/HCPCS: 36415; 71045; 78580; 80048; 80053; 81001; 83036; 83605; 83735; 83880; 84100; 84145; 84443; 84550; 85025; 87040; 93005; 99285; G0378; J0696; J1650; J7060; A9540; J7030; J7040